=== PATIENT | female | born 1980 | race American Indian/Alaskan Native ===

== ENCOUNTER 2018-09-11 21:01 | Emergency (ER) | payer BC ==
[2018-09-11 21:45] VITALS: BP 128/74
--- NOTE | 2018-09-11 21:45 | Emergency Department Report ---
Chief Complaint: Skin/Abscess/Foreign Body Stated Complaint: BOIL PAIN Time Seen by Provider: 09/11/18 21:41 - HPI History of Present Illness: This is a 38 y.o. female that presents with abscess to left posterior thigh and right buttock. Patient states left abscess x 4 days. States left abscess started draining today while at work. Prior abscess several years ago. She tried warm soaks which caused drainage. - Exam Vital Signs: Vital Signs 09/11/18 21:42 Temperature 98.6 F Pulse Rate 102 H Respiratory 18 Rate Blood Pressure 128/74 O2 Sat by Pulse 97 Oximetry MSE screening note: Focused history and physical exam performed. Due to findings the following was ordered: ACC for further evaluation. ED Disposition for MSE Condition: Stable
[2018-09-12] MEDS ORDERED: NORCO 5/325 ONE (00:16)
[2018-09-12] MEDS ORDERED: IBUPROFEN PO ONE ×2 (00:16)
[2018-09-12] MEDS ORDERED: NORCO 5/325 PO ONE (00:16)
[2018-09-12] MEDS ORDERED: KEFLEX PO ONE (01:05)
--- NOTE | 2018-09-12 01:13 | Emergency Department Report ---
- General Chief complaint: Skin/Abscess/Foreign Body Stated complaint: BOIL PAIN Time Seen by Provider: 09/11/18 21:41 Source: patient Mode of arrival: Ambulatory Limitations: No Limitations - History of Present Illness Initial comments: Patient is a 38-year-old -[place] female who presents for abscess is disease to the right buttocks and left posterior thigh days symptoms include pain swelling purulent drainage there is no fever or chills no n/v symptoms improved with nothing symptoms relieved by nothing, pain is 5/10 MD complaint: abscess/boil Onset/Timin -: week(s) Tetanus Up to Date: yes Location: buttocks (right buttocks), LLE Severity: moderate Severity scale (0 -10): 4 Quality: burning, other (itching ) Consistency: constant Improves with: none Worsens with: other (sitting) Context: none Associated symptoms: itching Treatments Prior to Arrival: none - Related Data Previous Rx's Medication Instructions Recorded Last Taken Type Azithromycin [Zithromax Tri-Jeramy] 500 mg PO DAILY 5 Days tablet 04/16/18 Unknown Rx Hydrocortisone 0.5% (Nf) 1 applicatio TP TID 7 Days tube 04/16/18 Unknown Rx [Hydrocortisone 0.5% OINT] metroNIDAZOLE 0.75%(NF) [Metrogel 1 applicatio TP BID 5 Days tube 04/16/18 Unknown Rx 0.75% TOPICAL] Naproxen [Naprosyn] 500 mg PO TID #12 tablet 05/31/18 Unknown Rx Tramadol HCl [Ultram] 50 mg PO Q6H PRN #8 tablet 05/31/18 Unknown Rx Fluconazole [Diflucan TAB] 150 mg PO ONCE #1 tablet 09/12/18 Unknown Rx Triamcinolone Aceton 0.1% (Nf) 1 applic TP BID #1 tube 09/12/18 Unknown Rx [Kenalog (NF)] cephALEXin [Keflex] 500 mg PO TID 10 Days #30 capsule 09/12/18 Unknown Rx traMADol [Ultram] 50 mg PO Q6HR PRN #12 tablet 09/12/18 Unknown Rx Allergies Allergy/AdvReac Type Severity Reaction Status Date / Time nickel Allergy Itching Verified 04/16/18 14:09 Penicillins Allergy Itching Verified 04/16/18 14:10 Abscess Boil HPI - HPI Chief Complaint: Skin/Abscess/Foreign Body Stated Complaint: BOIL PAIN Time Seen by Provider: 09/11/18 21:41 Duration: 1 Week Location: Lower Extremity Severity: Moderate History: Yes Pain, Yes Purulent Drainage, Yes Previous History, No Fever, No Numbness, No Foreign Body, No Insect Bite Home Medications: Previous Rx's Medication Instructions Recorded Last Taken Type Azithromycin [Zithromax Tri-Jeramy] 500 mg PO DAILY 5 Days tablet 04/16/18 Unknown Rx Hydrocortisone 0.5% (Nf) 1 applicatio TP TID 7 Days tube 04/16/18 Unknown Rx [Hydrocortisone 0.5% OINT] metroNIDAZOLE 0.75%(NF) [Metrogel 1 applicatio TP BID 5 Days tube 04/16/18 Unknown Rx 0.75% TOPICAL] Naproxen [Naprosyn] 500 mg PO TID #12 tablet 05/31/18 Unknown Rx Tramadol HCl [Ultram] 50 mg PO Q6H PRN #8 tablet 05/31/18 Unknown Rx Fluconazole [Diflucan TAB] 150 mg PO ONCE #1 tablet 09/12/18 Unknown Rx Triamcinolone Aceton 0.1% (Nf) 1 applic TP BID #1 tube 09/12/18 Unknown Rx [Kenalog (NF)] cephALEXin [Keflex] 500 mg PO TID 10 Days #30 capsule 09/12/18 Unknown Rx traMADol [Ultram] 50 mg PO Q6HR PRN #12 tablet 09/12/18 Unknown Rx Allergies/Adverse Reactions: Allergies Allergy/AdvReac Type Severity Reaction Status Date / Time nickel Allergy Itching Verified 04/16/18 14:09 Penicillins Allergy Itching Verified 04/16/18 14:10 ED Review of Systems ROS: Stated complaint: BOIL PAIN Other details as noted in HPI Constitutional: denies: chills, fever Eyes: denies: eye pain, eye discharge, vision change ENT: denies: ear pain, throat pain Respiratory: denies: cough, shortness of breath, wheezing Cardiovascular: denies: chest pain, palpitations Endocrine: no symptoms reported Gastrointestinal: denies: abdominal pain, nausea, diarrhea Genitourinary: denies: urgency, dysuria, discharge Musculoskeletal: denies: back pain, joint swelling, arthralgia Skin: lesions (abscess buttocks , LLE ). denies: rash Neurological: denies: headache, weakness, paresthesias Psychiatric: denies: anxiety, depression Hematological/Lymphatic: as per HPI. denies: easy bleeding, easy bruising ED Past Medical Hx - Past Medical History Previous Medical History?: No - Surgical History Past Surgical History?: Yes Additional Surgical History: Fibroids, 08/2015 - Social History Smoking Status: Current Every Day Smoker Substance Use Type: Alcohol - Medications Home Medications: Home Medications Medication Instructions Recorded Confirmed Last Taken Type Azithromycin [Zithromax Tri-Jeramy] 500 mg PO DAILY 5 Days tablet 04/16/18 Unknown Rx Hydrocortisone 0.5% (Nf) 1 applicatio TP TID 7 Days tube 04/16/18 Unknown Rx [Hydrocortisone 0.5% OINT] metroNIDAZOLE 0.75%(NF) [Metrogel 1 applicatio TP BID 5 Days tube 04/16/18 Unknown Rx 0.75% TOPICAL] Naproxen [Naprosyn] 500 mg PO TID #12 tablet 05/31/18 Unknown Rx Tramadol HCl [Ultram] 50 mg PO Q6H PRN #8 tablet 05/31/18 Unknown Rx Fluconazole [Diflucan TAB] 150 mg PO ONCE #1 tablet 09/12/18 Unknown Rx Triamcinolone Aceton 0.1% (Nf) 1 applic TP BID #1 tube 09/12/18 Unknown Rx [Kenalog (NF)] cephALEXin [Keflex] 500 mg PO TID 10 Days #30 capsule 09/12/18 Unknown Rx traMADol [Ultram] 50 mg PO Q6HR PRN #12 tablet 09/12/18 Unknown Rx ED Physical Exam - General Limitations: No Limitations General appearance: alert, in no apparent distress - Head Head exam: Present: atraumatic, normocephalic - Eye Eye exam: Present: normal appearance, PERRL, EOMI Pupils: Present: normal accommodation - ENT ENT exam: Present: normal exam, mucous membranes moist - Neck Neck exam: Present: normal inspection, full ROM - Respiratory Respiratory exam: Present: normal lung sounds bilaterally. Absent: respiratory distress, wheezes, stridor - Cardiovascular Cardiovascular Exam: Present: regular rate, normal rhythm, normal heart sounds. Absent: systolic murmur, diastolic murmur, rubs, gallop - GI/Abdominal GI/Abdominal exam: Present: soft, normal bowel sounds - Extremities Exam Extremities exam: Present: normal inspection - Back Exam Back exam: Present: normal inspection, full ROM. Absent: tenderness, rash noted - Neurological Exam Neurological exam: Present: alert, oriented X3, CN II-XII intact, normal gait - Psychiatric Psychiatric exam: Present: normal affect, normal mood - Skin Skin exam: Present: warm, dry, intact, normal color, other (abscess right buttocks, left posterior thigh ). Absent: rash ED Course Vital Signs 09/11/18 21:42 Temperature 98.6 F Pulse Rate 102 H Respiratory 18 Rate Blood Pressure 128/74 O2 Sat by Pulse 97 Oximetry - I & D Left Type of Procedure: Simple Site: abscesses 1-2 cm each morning posterior left thigh, right buttocks Blade Size: 11 I & D Procedure: betadine prep, sterile drapes applied, sterile dressing applied Progress: Wounds clean with Betadine solution anesthesia with 1% lidocaine plain 1 mL each incision with 11 blade scalpel blunt probed with 6 inch forceps moderate. purulent output, irrigation with steril saline x 20 cc each , sterile dressing applied pt given wound care instructions all bleeding is controlled pt tolerated procedure with minimal distress, pt dc'd to home with minimal distress. ED Medical Decision Making - Medical Decision Making Abscesses for I&d see procedure noted all bleeding is controlled pt tolerated procedure with minimal distress, pt given wound care instructions pt for dc to home in stable condition at this time. Critical care attestation.: If time is entered above; I have spent that time in minutes in the direct care of this critically ill patient, excluding procedure time. ED Disposition Clinical Impression: Abscess of buttock, right, Abscess of left thigh Disposition: DC-01 TO HOME OR SELFCARE Is pt being admited?: No Does the pt Need Aspirin: No Condition: Stable Instructions: Abscess (ED) Prescriptions: Fluconazole [Diflucan TAB] 150 mg PO ONCE #1 tablet cephALEXin [Keflex] 500 mg PO TID 10 Days #30 capsule Triamcinolone Aceton 0.1% (Nf) [Kenalog (NF)] 1 applic TP BID #1 tube traMADol [Ultram] 50 mg PO Q6HR PRN #12 tablet PRN Reason: Pain Referrals: LLUVIA JOSE MD [Primary Care Provider] - 3-5 Days Forms: Work/School Release Form(ED) Time of Disposition: 01:28
== END 2018-09-12 01:35 | disposition home or self-care (01) ==
LOC: ED 21:01
DX: L02.31 Cutaneous abscess of buttock (principal); F17.200 Nicotine dependence, unspecified, uncomplicated